=== PATIENT | female | born 1980 | race Caucasian/White ===

== ENCOUNTER → 2017-09-23 | Day surgery (SDC) | payer OTHER, MEDICAID ==
--- NOTE | 2017-09-21 08:44 | TH ---
cc: Tran Ren MD DATE: 09/23/2017 SCHEDULED PROCEDURE: NovaSure and laparoscopic tubal ligation. CHIEF COMPLAINT: Irregular bleeding and desire for permanent sterilization. HISTORY OF PRESENT CONDITION: The patient is a 37-year-old white female, 3, para 3, with menses that are becoming unacceptable in amount, timing and duration. She has also completed her childbearing and desires no further children. She has not done well on oral contraceptives and had complications with an IUD that required hysteroscopic removal. She is, therefore, comfortable with and has scheduled for tubal ligation at the same time as her ablation. Her general health is overall good. It is complicated by the recent diagnosis of as of yet undefined autoimmune condition, and she is being followed closely by Dr. Tom Cartwright for symptoms of profound fatigue, lower extremity swelling, muscle and joint aches, intermittent rashes. PAST MEDICAL HISTORY: She has mild attention deficit disorder and does take Adderall for mild depression. MEDICATIONS: She takes gabapentin and Lexapro. SOCIAL HISTORY: She currently smokes approximately a half a pack of cigarettes a day and desires to quit. She does not drink or use illicit drugs. 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 She has had 3 term vaginal deliveries that were uncomplicated. GYNECOLOGIC HISTORY: She does not have a history of abnormal Pap smear and no STDs. PHYSICAL EXAMINATION: GENERAL: She is a slim white female, in no acute distress. VITAL SIGNS: Afebrile with stable vital signs. PULMONARY: Her lungs are clear to auscultation. CARDIOVASCULAR: Heart rate and rhythm are regular. ABDOMEN: Scaphoid, with no hepatosplenomegaly. BACK: No CVA tenderness. PELVIC: Her perineum is well estrogenized. The vault is elevated. The cervix is multiparous. There is a minimal degree of descent. The uterus is anteverted, mobile, nontender and both ovaries are palpable, mobile, nontender. Guaiac in the past have been negative. EXTREMITIES: At this time are unremarkable, but she has had episodes of significant pedal edema and some varicosities that are painful in the back of her leg. IMPRESSION: Unacceptable bleeding and desire for permanent sterilization. PLAN: NovaSure and tubal ligation. Risks, benefits, expectations, alternatives have all been described and she has signed consents and is scheduled for Luis morning. MD FRANKLIN Nichols , 11:03 PM , 11:15 PM
[~2017-09-23] MED LIST: ACETAMINOPHEN 1000 MG/100 ML 100 ML IV ONE; GABA300C3 PO; IBUPROFEN 200 MG TAB ONE; KETOROLAC TROMETHAMINE 30 MG/ML (IVP) VIAL IV PUSH ONE; LACTATED RINGER'S 1000 ML INJ 1,000 ML ONE; MIDAZOLAM HCL 2 MG/2 ML VIAL ONE; ONDANSETRON HCL 4 MG/2 ML VIAL IV PUSH ONE; PROPOFOL 200 MG/20 ML AMP IV ONE; SILVER NITR/POTASSIUM NITRATE APPLICATORS ONE; TOPI50TA4 PO; ZOLO50TA PO; ceFAZolin INJ 1,000 MG VIAL ONE
--- NOTE | 2017-10-04 17:11 | MP ---
cc: Tran Ren MD DATE OF OPERATION: 09/23/2017 DATE OF : 1980 PREOPERATIVE DIAGNOSIS: Irregular bleeding and desired sterility. POSTOPERATIVE DIAGNOSIS: Irregular bleeding and desired sterility. PROCEDURE: 1. NovaSure. 2. Laparoscopic tubal ligation. ANESTHESIA: General. SURGEON: MD Gela CLAIMS ASSISTANT: ALEXA Spear FINDINGS: The uterus was anteverted, mobile. She had a multiparous cervix. The endometrial cavity was unremarkable and the NovaSure was applied without difficulty. Vertical was 5.5, horizontal was 3 and it was then placed for approximately 1 minute 45 seconds. Under laparoscope the tubes were unremarkable. Uterus was normal. Ovaries appeared unremarkable. There was no evidence of infection, adhesions, endometriosis or neoplasm. Liver edge and gallbladder were normal. The tubes were burned in 3 places with the Kleppinger and then cut in those areas to minimize risk of a post-procedure . ESTIMATED BLOOD LOSS: 50 mL. COUNTS: Sponge, instrument and needle count were correct. CONDITION: She tolerated the procedure well and went to the recovery stable. PROCEDURE IN DETAIL: The patient was identified as Emily Abreu. Her permit was reviewed. She was given 1 gram Ancef IV. She was taken to the operating room, placed under general endotracheal anesthesia, prepped and draped in dorsal lithotomy position. A timeout was performed with all in attendance. First, the examination under anesthesia was performed. The cervix was then grasped with tenaculum and dilated to allow the placement of the hysteroscope. Systematic evaluation revealed an unremarkable intrauterine cavity. The NovaSure was placed with the settings above, had appropriate enabling and destruction of the endometrial lining. It was then removed. Attention was then directed to the abdomen. With fresh gloves, a 5 mm incision was made in the umbilicus and the 5 mm trocar and sleeve placed into the peritoneal cavity. The pneumoperitoneum was then created and systematic evaluation of the abdominal pelvic contents was performed. A second incision was made right in the hairline, entered and the trocar sleeve placed. The trocar was removed and the Kleppinger placed. Under direct visualization the tubes were elevated away from other structures burned in 3 places, one near the isthmus, 1 in the ampulla and 1 toward the fimbria. All 3 places were then cut with the scissors without cautery. There was no evidence of iatrogenic injury or intrinsic pathology. The pneumoperitoneum was then released and the incisions were closed with a single suture. She was placed in dorsal supine position, awoken, and taken to the recovery room in stable condition. MD NAYELI Nichols/SB , 04:54 PM , 05:10 PM
== END | disposition home or self-care (01) ==
LOC: ESDC 09:59
PROVIDERS: ATTEND Obstetrics & Gynecology
DX: N93.9 Abnormal uterine and vaginal bleeding, unspecified (principal); Z30.2 Encounter for sterilization; F17.210 Nicotine dependence, cigarettes, uncomplicated
CPT/HCPCS: 00952; 58563; 58661; J0131; J0690; J1885; J2250; J2405; J3010; J7120